=== PATIENT | male | born 1970 | race Caucasian/White ===

== ENCOUNTER 2020-12-01 14:39 | Emergency (ER) | payer SELFPAY ==
[~2020-12-01] VITALS: Ht 170.2 cm; Wt 80.0 kg
[2020-12-01 16:35] LABS: EOSINOPHILS % 0.3 % (0.0-5.0); HEMOGLOBIN. 16.2 g/dL (14.0-18.0); LYMPHOCYTES % 24.7 % (20.0-50.0); MEAN CORPUSCULAR HEMOGLOBIN 28.7 pg (28.0-32.0); MEAN CORPUSCULAR VOLUME 83.7 fL (80.0-94.0); MEAN PLATELET VOLUME 6.7 fl (7.4-10.4); MONOCYTES % 9.7 % (2.0-8.0); NEUTROPHILS % 64.3 % (40.0-76.0); PLATELET 355 x1000/uL (130-400); RED BLOOD CELL COUNT 5.62 mill/uL (4.7-6.1); RED CELL DISTRIBUTION WIDTH 13.6 % (11.6-14.6)
[2020-12-01 16:38] LABS: CHLORIDE 107 mEq/L (98-107)
[2020-12-01] MEDS ORDERED: LORAZEPAM 2MG/ML CPJ IV NR (17:00)
[2020-12-01 20:30] LABS: *AMPHETAMINES SCREEN URINE PRESUMTIVE POSITIVE (NEGATIVE); *BARBITURATES SCREEN URINE NEGATIVE (NEGATIVE); *BENZODIAZEPINES SCREEN URINE NEGATIVE (NEGATIVE); *COCAINE SCREEN URINE NEGATIVE (NEGATIVE); METHADONE URINE SCREEN NEGATIVE (NEGATIVE); OPIATES URINE SCREEN NEGATIVE (NEGATIVE)
[2020-12-01 20:31] LABS: CANNABINOID URINE SCREEN NEGATIVE (NEGATIVE); PHENCYCLIDINE URINE SCREEN NEGATIVE (NEGATIVE)
[2020-12-02 05:23] VITALS: BP 118/75
== END 2020-12-02 05:51 | disposition home or self-care (01) ==
LOC: ER 14:56 → CANBEDREQ 12-02 16:38
DX: F15.129 Other stimulant abuse with intoxication, unspecified (principal); G92 Toxic encephalopathy; R07.89 Other chest pain; R51.9 Headache, unspecified; R00.0 Tachycardia, unspecified; F15.180 Other stimulant abuse with stimulant-induced anxiety disorder; Z71.51 Drug abuse counseling and surveillance of drug abuser
CPT/HCPCS: 36415; 70450; 71045; 80053; 80305; 80320; 83880; 84484; 85025; 93005; 96374; 99291; J2060; G0480